=== PATIENT | male | born 2000 | race Caucasian/White ===

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

== ENCOUNTER → 2021-01-21 13:28 | Outpatient (BNVA) | payer OTHER, SELFPAY | PROVIDERS: PCP Pediatrics; Visit Provider Nurse Practitioner Family | DX: K21.9 Gastro-esophageal reflux disease without esophagitis (principal); K59.01 Slow transit constipation | CPT/HCPCS: 99202 ==

== ENCOUNTER 2021-07-17 07:13 | Day surgery (SDC) | payer OTHER, SELFPAY ==
[2021-07-14 11:03] VITALS: BMI 29.3
--- NOTE | 2021-07-16 09:28 | HO.ANESPROP2 ---
Documented by User: Steffi Hodge NP 07/22/21 11:59 HPI - Anesthesia Eval Consult details Narrative: 21yo M for Upper Endoscopy and Colonoscopy [facility] Past Medical History Medical History (Updated 11/09/20 @ 00:02 by Background Vannesa) Patient denies significant medical history Surgical History Surgical History (Updated 07/23/21 @ 10:37 by Capo Sparrow) History of esophagogastroduodenoscopy (EGD) Social History Social History (Updated 01/21/21 @ 13:32 by Angelina Rand) Alcohol intake: never Patient Tobacco Use Status: Never used Tobacco Meds Allergies Allergy/AdvReac Type Severity Reaction Status Date / Time No Known Allergies Allergy Verified 01/21/21 13:38 Exam Exam Date and Time: July 16, [id number] Height,Weight and Vital Signs: Height 6 ft 3 in Weight 106.594 kg Assessment and Plan Assessment Anesthesia Assessment: Chart Reviewed Documented by User: Bryan Darling MD 07/29/21 11:43 [facility] Past Medical History Medical History (Updated 11/09/20 @ 00:02 by Background [place]) Patient denies significant medical history Family History Family history of problems with anesthesia: No Surgical History Surgical History (Updated 07/23/21 @ 10:37 by Capo Sparrow) History of esophagogastroduodenoscopy (EGD) History of Problems with Anesthesia: No Social History Social History (Updated 01/21/21 @ 13:32 by Angelina Rand) Alcohol intake: never Patient Tobacco Use Status: Never used Tobacco Meds Allergies Allergy/AdvReac Type Severity Reaction Status Date / Time No Known Allergies Allergy Verified 01/21/21 13:38 Exam Airway Mallampati Class: II TM Dist: >3cm Neck ROM: Full Assessment and Plan Assessment Anesthesia Assessment: Anesthesia Plan Discussed Final Anesthetic Review Family History of Problems with Anesthesia: No History of Problems with Anesthesia: No NPO: Yes ASA Class: I Final Preanesthetic Review: No Changes in Pt Med Stat, Meds/Allgs Chart Reviewed, Consent Obtained/Reviewed and Anes Risks/Benef Reviewed Patient Risk: Low Procedure Risk: Low Anesthetic Plan Anesthetic Plan: MAC: Disposition: Standard PACU
[2021-07-17 07:33] VITALS: BMI 29.5
[2021-07-17 07:50] VITALS: BP 114/62; PULSE 72; RESP 16; TEMP 36.5; O2SAT 98
[2021-07-17] MEDS: Lactated Ringers 1,000 ML 100 ML IVCONT (08:11)
--- NOTE | 2021-07-17 08:20 | MHC.SHP ---
Pre-Procedural Eval Section A Date of Service: 07/17/21 Section B Chief Complaint: reflux,constipation Relevant Family History (Specify if Yes): No Relevant Social History: None Present Medications: see Short Stay Collaborative assessment Medical History: No relevant PMH History of Previous Operations: No relevant previous surgery Allergies: Allergies Allergy/AdvReac Type Severity Reaction Status Date / Time No Known Allergies Allergy Verified 01/21/21 13:38 Review of Systems Sugical H&P ROS: Negative: Constitution, Cardiovascular, Respiratory, Neurological, Psychiatric, Hem-Onc, Allergic/Immunologic, Gastrointestinal, Genitourinary, Musculoskeletal, Integumentary, Endocrine and Eyes/Ears/Nose/Throat Exam Surgical H&P Exam: Normal: HEENT, Normal: Heart, Normal: Lungs, Normal: Extremities, Normal: Abdomen, Normal: Skin and Normal: Neurological Plan Diagnosis/Plan: Change (didn;t do prep only EGD today) I have reviewed the history and physical and performed a pertinent physical examination on my patient. No changes have occurred unless specified.
--- NOTE | 2021-07-17 08:40 | P.BOP_ITS ---
Brief Operative Note Date of Service: 07/17/21 Pre-op diagnosis: epigastric pain Post-op diagnosis: same Procedure: see op note Surgeon: Loreto Tamez MD Anesthesia: MAC Was an [employer] used for this Procedure?: No Estimated blood loss (mL): 0 Condition: stable Disposition: PACU
--- NOTE | 2021-07-17 08:40 | W.PM.OPN ---
Operative Note Operative Note Date of Service: 07/17/21 Narrative: Procedure Description: EGD Indication: epigastric pain Anesthesia: MAC FLEXIBLE TRANSORAL UPPER GASTROINTESTINAL ENDOSCOPY UPPER ENDOSCOPY Consent: Indications for the procedure and potential complications of bleeding, perforation, reaction to medications and missed diagnosis were discussed with the patient and informed consent was obtained. Instrument: Olympus GIF H 190 J mid size upper endoscope Monitoring: Vital signs and clinical assessment, continuous EKG monitoring, Pulse oximetry, Carbon Dioxide monitoring and blood pressure monitoring were done throughout the procedure. Procedure: The patient was placed in the left lateral decubitis position and pre-procedure medications were administered and a bite block was placed. The endoscope was inserted into the mouth and advanced under direct vision to the third part of duodenum. A careful inspection was made as the upper endoscope was withdrawn including a retroflexed examination of the proximal stomach; Findings and interventions are described below. Findings: Larynx:normal Esophagus: GE junction at 45 cm, diaphragm hiatus at 45 cm, mild esophagitis LA grade A. Stomach: Patchy gastric erythema. Biopsies were obtained. Grade 2 flap valve on retroflexed examination of the cardia. Duodenum: Mild to moderate erythema and inflammation duodenal bulb, bx taken Intervention: Biopsies as noted above Impression/Findings: gastritis duodenitis esophagitis PLAN: he stopped nsaids several months ago--was on for back pain sx have improved, if h pylori pos then treat if still having breakthru sx may benefit from low dose PPI or H2 solomon
[2021-07-17 08:49] VITALS: BP 101/45; PULSE 59; RESP 14; TEMP 36.6; O2SAT 100
[2021-07-17 09:04] VITALS: BP 97/45; PULSE 58; RESP 17; O2SAT 97
[2021-07-17 09:19] VITALS: BP 116/51; PULSE 72; RESP 18; TEMP 36.6; O2SAT 98
== END 2021-07-17 09:35 | disposition home or self-care (01) ==
PROVIDERS: Visit Provider Internal Medicine Gastroenterology
PROC: (CPT 43239; principal; 2021-07-17 08:30)
DX: K21.9 Gastro-esophageal reflux disease without esophagitis (principal); K59.01 Slow transit constipation; K29.50 Unspecified chronic gastritis without bleeding; K29.80 Duodenitis without bleeding; Q39.8 Other congenital malformations of esophagus; K44.9 Diaphragmatic hernia without obstruction or gangrene
CPT/HCPCS: 43239; 88305; 88342; J3010

== ENCOUNTER 2022-09-17 02:07 | Emergency (ER) | payer OTHER, SELFPAY ==
[2022-09-17 02:09] VITALS: BP 138/75; PULSE 94; RESP 18; TEMP 36.6; O2SAT 99; BMI 27.0
[2022-09-17 03:18] VITALS: BP 110/50; PULSE 56; RESP 17; TEMP 36.6; O2SAT 97
[2022-09-17 03:37] LABS: Appearance Urine Clear; Color Urine Yellow; Glucose Urine UA Negative (Negative); Leukocyte Esterase Urine Negative (Negative); Nitrite Urine Negative (Negative); PH 7.5 (5.0-9.0); Urine Blood Negative (Negative); Urine Ketones Negative (Negative); Urine Protein Negative (Neg-Trace)
--- NOTE | 2022-09-17 04:46 | ED_ITS ---
HPI - Male Genitourinary General Chief complaint: Urogenital-Male Stated complaint: gen med, uro gen-male Time Seen by Provider: 09/17/22 04:40 Source: patient Mode of arrival: ambulatory Limitations: no limitations History of Present Illness HPI Narrative: Patient comes to the emergency room concerned that he may have a sexually transmitted disease. Patient states that he has a single vesicle on the dorsal aspect of the penis, does not hurt significantly. Patient unsure if he has discharge., denies dysuria hematuria. Denies fever chills, no flank pain Related Data Previous Rx's Medication Instructions Recorded acetaminophen 500 mg tablet 500 mg PO Q6H PRN pain or fever 10/10/20 (Tylenol Extra Strength) #20 tabs cyclobenzaprine 5 mg tablet 5 mg PO Q8H PRN pain (scale score 10/10/20 7-10) 5 days #14 tabs lidocaine 5 % topical patch 1 patch topical DAILY PRN pain #30 10/10/20 (Lidoderm) ea naproxen 500 mg tablet 500 mg PO BID PRN pain 10 days #20 10/10/20 tabs omeprazole 20 mg capsule,delayed 20 mg PO DAILY #30 caps 01/21/21 release polyethylene glycol 3350 17 17 g PO DAILY PRN constipation 01/21/21 gram/dose oral powder (Miralax) #238 grams acyclovir 200 mg capsule 400 mg PO TID 7 days #42 caps 09/17/22 doxycycline monohydrate 100 mg 100 mg PO DAILY #14 tabs 09/17/22 tablet Allergies Allergy/AdvReac Type Severity Reaction Status Date / Time No Known Allergies Allergy Verified 01/21/21 13:38 Review of Systems Review of Systems: Constitutional : No Weight loss, No Fever, No Chills, No Night Sweats, No Fatigue, No Malaise ENT/Mouth : No Hearing loss, No Ear Pain, No Nasal Congestion, No Sinus Pain, No Hoarseness, No sore throat, No Rhinorrhea, No Swallowing Difficulty Eyes: No Eye Pain, No Swelling, No Redness, No Foreign Body, No Discharge, No Vision Changes Cardiovascular : No Chest Pain, No SOB, No Dyspnea on Exertion, No Orthopnea, No Edema, No Palpitations Respiratory : No Cough, No Sputum, No Wheezing, No Smoke Exposure, No Dyspnea Gastrointestinal : No Nausea, No Vomiting, No Diarrhea, No Constipation, No abdominal Pain, No Hematochezia, No Melena Genitourinary : complaining of a single vesicle on the dorsal aspect of the penis, questionable penile discharge, No Dysuria, No Urinary Frequency, No Hematuria, No Urinary Incontinence, No Urgency, No Flank Pain, No Urinary Flow Changes, No Hesitancy Musculoskeletal : No joint pain, No Myalgias, No Joint Swelling Skin : No Skin Lesions, No rash Neuro : No Weakness, No Numbness, No Paresthesias, No Loss of Consciousness, No Dizziness, No Headache Psych : No Anxiety/Panic, No Depression, No SI/HI/AH/VH, No Social Issues, Heme/Lymph: No Bruising, No Bleeding,No Lymphadenopathy Endocrine : No Polyuria, No Polydipsia, No Temperature Intolerance [facility] Past Medical History Medical History Patient denies significant medical history Surgical History History of esophagogastroduodenoscopy (EGD) Social History Social History (Updated 01/21/21 @ 13:32 by Angelina Rand) Alcohol intake: never Patient Tobacco Use Status: Never used Tobacco Smoked in Last 30 Days: No Use of substances other than those prescribed or required for medical reasons: No Advance Directives: No Advance Directives Information Provided: Yes Physical Exam Vital Signs: Vital Signs: Last Vital Signs Temp 97.8 F 09/17/22 03:18 Pulse 56 09/17/22 03:18 Resp 17 09/17/22 03:18 BP 110/50 L 09/17/22 03:18 Pulse Ox 97 09/17/22 03:18 O2 Del Method Room Air 09/17/22 03:18 BMI result Body Mass Index 27.0 Const: Other: Appearance: Alert. Oriented X3. No acute distress. Eyes: Pupils equal, round and reactive to light. ENT: Pharynx normal. Neck: Normal inspection. Neck supple. No lymph nodes noted. No crepitus CVS: Normal heart rate and rhythm. Pulses normal. Normal S1 and S2 Respiratory: No respiratory distress. Breath sounds normal. No Wheezing. No rales Abdomen: Soft and nontender. No rigidity. No distention. :: 1 single vesicle on the dorsal aspect of the penis, minimal discomfort. In no discharge. Skin: Skin warm and dry. Normal skin color. Normal skin turgor. Extremities: No lower extremity edema. No Lacerations. No Rash Neuro: Oriented X 3. No motor deficit. No sensory deficit. Moving all extremities. No slurred speech. CN 2 through 12 grossly intact Psych: calm, cooperative, normal affect Medical Decision Making Medical Decision Making MDM Narrative: -discussed the physical exam with the patient. It is possible that patient may have beginning of herpes, there is a single lesion in the dorsum of the penis. -patient requesting to be treated for STDs prophylactically -patient given IM ceftriaxone and p.o. doxycycline. Patient will also be given valacyclovir Differential Diagnosis Differential Diagnoses: The differential diagnosis associated with the presentation includes (Gonorrhea, chlamydia, herpes, dermatitis, UTI) Lab Data Labs: Lab Results 09/17/22 Range/Units 03:31 Urine Color Yellow Urine Appearance Clear Urine pH 7.5 (5.0-9.0) Ur Specific [place] 1.020 (1.005-1.025) Urine Protein Negative (Neg-Trace) mg/dL Urine Glucose (UA) Negative (Negative) mg/dL Urine Ketones Negative (Negative) mg/dL Urine Blood Negative (Negative) Urine Nitrite Negative (Negative) Ur Leukocyte Esterase Negative (Negative) Discharge Plan Discharge Clinical Impression: Exposure to sexually transmitted disease (STD) Patient Disposition: Home, Self-Care Instructions: Sexually Transmitted Diseases (ED) Additional Instructions: Please follow-up with your primary care physician tomorrow. If you have any worsening or new symptoms, please return to the emergency room or call 911 Prescriptions: New doxycycline monohydrate 100 mg tablet 100 mg PO DAILY Qty: 14 0RF acyclovir 200 mg capsule 400 mg PO TID 7 Days Qty: 42 0RF No Action cyclobenzaprine 5 mg tablet 5 mg PO Q8H PRN (Reason: pain (scale score 7-10)) 5 Days Qty: 14 0RF lidocaine [Lidoderm] 5 % adhesive patch,medicated 1 patch topical DAILY MDD remove after 12 hours PRN (Reason: pain) Qty: 30 0RF Rx Instructions: leave on most painful area for up to 12 hrs naproxen 500 mg tablet 500 mg PO BID PRN (Reason: pain) 10 Days Qty: 20 0RF acetaminophen [Tylenol Extra Strength] 500 mg tablet 500 mg PO Q6H PRN (Reason: pain or fever) Qty: 20 0RF omeprazole 20 mg capsule,delayed release(DR/EC) 20 mg PO DAILY Qty: 30 3RF polyethylene glycol 3350 [Miralax] 17 gram/dose powder 17 g PO DAILY PRN (Reason: constipation) Qty: 238 0RF
[2022-09-17] MEDS: Doxycycline Monohydrate 100 MG CAPSULE PO (04:59)
[2022-09-17] MEDS: cefTRIAXone sodium 500 MG, Lidocaine HCl 1 % MPF 1 ML IM (04:59)
[2022-09-17 11:56] LABS: CT PCR NOT DETECTED (Not Detect.); NG PCR NOT DETECTED (Not Detect.)
== END 2022-09-17 05:02 | disposition home or self-care (01) ==
PROVIDERS: Emergency Provider Emergency Medicine
DX: Z20.2 Contact with and (suspected) exposure to infections with a predominantly sexual mode of transmission (principal)
CPT/HCPCS: 0353U; 81003; 96372; 99284; J0696